=== PATIENT | male | born 1945 | race Asian ===

== ENCOUNTER 2023-05-22 23:33 | Outpatient (CLI) | payer MEDICARE, OTHER | END 2023-05-22 23:59 | disposition other institution (70) | LOC: EMS 23:33 | DX: R10.9 Unspecified abdominal pain (principal); R11.2 Nausea with vomiting, unspecified | CPT/HCPCS: A0425; A0429 ==

== ENCOUNTER 2023-05-22 23:52 | Emergency (ER) | payer MEDICARE, OTHER ==
--- NOTE | 2023-05-23 00:09 | ED Physician Documentation ---
History of Present Illness - Stated complaint Stated Complaint: LEFT FLANK PAIN - Chief complaint Chief Complaint: Back Pain - Additonal information Additional information: 78-year-old male presenting to the emergency department with left-sided flank pain that began acutely this evening. Reports left-sided flank pain worse with physical activity. Denies fever, chills, nausea, vomiting, dysuria, blood in urine. Denies history of kidney stones. Review of Systems Constitutional: denies: Fever Eyes: denies: Loss of vision Ears: denies: Loss of hearing Nose: denies: Rhinorrhea / runny nose Throat: denies: Dental pain / toothache Cardiac: denies: Chest pain / pressure Respiratory: denies: Dyspnea GI: reports: Other (Flank pain). denies: Abdominal Pain : denies: Dysuria, Hematuria PD PAST MEDICAL HISTORY - Past Medical History Past Medical History: Yes Cardiovascular: High cholesterol, Angina Respiratory: None Neuro: None Endocrine/Autoimmune: HyPOthyroidism GI: None : None HEENT: None Psych: None Musculoskeletal: None Derm: None - Past Surgical History Past Surgical History: Yes Cardiovascular: Coronary stent, Angioplasty - Present Medications Home Medications: Ambulatory Orders Medication Instructions Recorded Confirmed Levothyroxine Sodium 02/06/16 HYDROcod/ACETAM 5/325 [[place] 5/325] 1 tab PO Q6HR #10 tab 05/23/23 Ibuprofen [Motrin] 800 mg PO Q8H PRN #30 tablet 05/23/23 - Allergies Allergies/Adverse Reactions: Allergies Allergy/AdvReac Type Severity Reaction Status Date / Time No Known Drug Allergies Allergy Verified 02/06/16 16:58 - Social History Does the pt smoke?: No Smoking Status: Former smoker Does the pt drink ETOH?: Yes Does the pt have substance abuse?: No - Immunizations Immunizations are current?: Yes - POLST Patient has POLST: No PD ED PE NORMAL - Vitals Vital signs reviewed: Yes - General General: Alert and oriented X 3, No acute distress, Well developed/nourished - HEENT HEENT: Atraumatic, PERRL - Neck Neck: Supple, no meningeal sign - Cardiac Cardiac: RRR - Respiratory Respiratory: No respiratory distress, Clear bilaterally - Abdomen Abdomen: Non tender - Male Male : Pt declined - Back Back: No CVA TTP, No spinal TTP - Derm Derm: Normal color - Extremities Extremities: No deformity, No edema - Neuro Neuro: Alert and oriented X 3, sports medicine physician 2-12 intact, No motor deficit, Normal speech Results - Vitals Vitals: Vital Signs - 24 hr 05/22/23 05/23/23 23:55 01:56 Temperature 36.7 C Heart Rate 87 64 Respiratory 17 16 Rate Blood Pressure 157/87 H 134/70 H O2 Saturation 98 99 Oxygen O2 Source Room air - Labs Labs: Laboratory Tests 05/23/23 05/23/23 05/23/23 00:10 00:10 00:10 WBC 8.0 RBC 4.54 L Hgb 14.1 Hct 42.8 MCV 94.3 H MCH 31.1 H MCHC 32.9 RDW 13.3 Plt Count 182 MPV 10.7 Neut # (Auto) 7.0 H Lymph # (Auto) 0.7 L Story # (Auto) 0.3 Eos # (Auto) 0.0 Baso # (Auto) 0.0 Absolute Nucleated RBC 0.00 Nucleated RBC % 0.0 Sodium 137 Potassium 4.1 Chloride 103 Carbon Dioxide 27 Anion Gap 7.0 BUN 13 Creatinine 1.1 Estimated GFR (MDRD) 65 L Glucose 141 H Lactic Acid Calcium 9.8 Total Bilirubin 0.8 AST 25 ALT 16 Alkaline Phosphatase 99 Total Protein 7.0 Albumin 4.4 Globulin 2.6 Albumin/Globulin Ratio 1.7 Lipase 16 Urine Color BROWN Urine Clarity CLOUDY Urine pH 6.5 Ur Specific Hammond 1.025 Urine Protein 30 H Urine Glucose (UA) NEGATIVE Urine Ketones 40 H Urine Occult Blood LARGE H Urine Nitrite NEGATIVE Urine Bilirubin NEGATIVE Urine Urobilinogen 0.2 (NORMAL) Ur Leukocyte Esterase NEGATIVE Urine RBC TNTC H Urine WBC 0-3 Ur Squamous Epith Cells NONE SEEN Urine Bacteria Rare Urine Mucus Few Strands Ur Microscopic Review INDICATED Urine Culture Comments NOT INDICATED 05/23/23 00:20 WBC RBC Hgb Hct MCV MCH MCHC RDW Plt Count MPV Neut # (Auto) Lymph # (Auto) Story # (Auto) Eos # (Auto) Baso # (Auto) Absolute Nucleated RBC Nucleated RBC % Sodium Potassium Chloride Carbon Dioxide Anion Gap BUN Creatinine Estimated GFR (MDRD) Glucose Lactic Acid 1.0 Calcium Total Bilirubin AST ALT Alkaline Phosphatase Total Protein Albumin Globulin Albumin/Globulin Ratio Lipase Urine Color Urine Clarity Urine pH Ur Specific Hammond Urine Protein Urine Glucose (UA) Urine Ketones Urine Occult Blood Urine Nitrite Urine Bilirubin Urine Urobilinogen Ur Leukocyte Esterase Urine RBC Urine WBC Ur Squamous Epith Cells Urine Bacteria Urine Mucus Ur Microscopic Review Urine Culture Comments PD Medical Decision Making - ED course Complexity details: reviewed results, re-evaluated patient, considered differential, d/w patient ED course: Patient 78-year-old male presenting to the emergency department with left-sided flank pain. Afebrile, hemodynamically stable. Labs within normal limits are generally nonactionable. CT of the abdomen pelvis demonstrates a 4 mm left-sided kidney stone with hydroureter without hydronephrosis. Of note patient does not demonstrate any renal dysfunction on lab work and no indications of infection in his urine. On reevaluation was found to be resting comfortably. Will provide medication for pain control, urine strainer, encourage follow-up with primary care. We will also provide contact information for local area urology for use as needed. Clear return precautions given. Departure - Departure Disposition: Home, Self Care Clinical Impression: Kidney stone on left side Instructions: Kidney Stones, ED Stone Renal W Colic Follow-Up: Amado Bell MD [Provider Admit Priv/Credential] - Prescriptions: HYDROcod/ACETAM 5/325 [[place] 5/325] 1 tab PO Q6HR #10 tab Ibuprofen [Motrin] 800 mg PO Q8H PRN #30 tablet PRN Reason: PAIN &/OR FEVER Comments: Thank you [facility] allowing [facility] Today in the emergency department you were diagnosed with a left-sided kidney stone. A 4 mm kidney stone was identified on the CT scan performed in the emergency department today the remainder of your labs are all very reassuring. Stones of this size have a greater than 95% likelihood of passing spontaneously in the next few days. I like you to use a urine strainer at home for the next few days. I recommend drinking plenty of fluid. I have written some medications for pain control. Please take these as directed. Please follow-up with your primary care doctor. I have also included the phone number for a local urologist for use as needed for persistent symptoms that do not resolve in the next 1 to 2 days. If it anytime you develop any new or worsening symptoms, particularly if you develop worsening pain, intractable nausea, vomiting, inability to tolerate food, fluids or medications or if you develop any angelica blood in your urine or feel the need to urinate and cannot please return to the emergency department immediately for reevaluation.
[2023-05-23] MEDS ORDERED: SODIUM CHLORIDE 0.9% 1,000 ML IV STA (00:20)
[2023-05-23 00:26] LABS: BASOPHILS % (AUTO) 0.4 %; EOSINOPHILS % (AUTO) 0.1 %; HCT - HEMATOCRIT 42.8 % (42.0-52.0); HGB - HEMOGLOBIN 14.1 g/dL (14.0-18.0); LYMPHOCYTES # (AUTO) 0.7 10^3/uL (1.5-3.5); LYMPHOCYTES % (AUTO) 8.1 %; MEAN CORPUSCULAR HEMOGLOBIN 31.1 pg (27.0-31.0); MEAN CORPUSCULAR HGB CONC 32.9 g/dL (32.0-36.0); MEAN CORPUSCULAR VOLUME 94.3 fL (80.0-94.0); MEAN PLATELET VOLUME 10.7 fL (7.4-11.4); MONOCYTES # (AUTO) 0.3 10^3/uL (0.0-1.0); MONOCYTES % (AUTO) 3.7 %; NEUTROPHILS % (AUTO) 87.5 %; PLT - PLATELET COUNT 182 10^3/uL (130-450); RED BLOOD COUNT 4.54 10^6/uL (4.70-6.10); RED CELL DISTRIBUTION WIDTH 13.3 % (12.0-15.0)
[2023-05-23 00:37] LABS: BILIRUBIN,URINE NEGATIVE (NEGATIVE); GLUCOSE, URINE (UA) NEGATIVE (NEGATIVE); KETONES,URINE (UA) 40 mg/dL (NEGATIVE); LEUKOCYTE ESTERASE, URINE NEGATIVE (NEGATIVE); NITRITE,URINE NEGATIVE (NEGATIVE); OCCULT BLOOD,URINE LARGE (NEGATIVE); PH,URINE 6.5 PH (5.0-7.5); PROTEIN,URINE 30 mg/dL (NEGATIVE); UROBILINOGEN,URINE 0.2 (NORMAL) E.U./dL (NORMAL)
[2023-05-23 00:38] LABS: CLARITY,URINE CLOUDY (CLEAR)
[2023-05-23 00:39] LABS: BACTERIA,URINE Rare /HPF (None Seen); MUCUS,URINE Few Strands; RBC,URINE TNTC /HPF (0-5); SQUAMOUS EPITHELIAL CELL,UR NONE SEEN (<= Few); WBC,URINE 0-3 /HPF (0-3)
[2023-05-23 00:40] LABS: ALBUMIN 4.4 g/dL (3.2-5.5); ALBUMIN/GLOBULIN RATIO 1.7 (1.0-2.2); BILIRUBIN,TOTAL 0.8 mg/dL (0.2-1.0); CALCIUM 9.8 mg/dL (8.5-10.3); CREATININE 1.1 mg/dL (0.6-1.3); POTASSIUM 4.1 mmol/L (3.5-4.5)
--- OUTSIDE RECORDS SUMMARY | 2023-05-23 00:43 | EXTERNAL MEDICAL SUMMARY RPT | Continuity of Care Document ---
Author Name Unknown Address [address] [place] [address] Phone Organization [facility] Address [address] [phone] Phone Problems date description facility [facility]23[facility] date [facility] value unit notes
[2023-05-23] MEDS ORDERED: KETOROLAC 30 MG/ML VIAL IVP STA (00:48)
--- NOTE | 2023-05-23 02:06 | CT Report ---
PROCEDURE: ABDOMEN/PELVIS W INDICATIONS: lft flank pain CONTRAST: Omni 300 100ml TECHNIQUE: After the administration of intravenous contrast, 5 mm thick sections acquired from the diaphragms to the symphysis. 5 mm thick coronal and sagittal reformats were acquired. For radiation dose reducti on, the following was used: automated exposure control, adjustment of mA and/or kV according to sanjuanita ent size. COMPARISON: FINDINGS: Image quality: Excellent. Lung bases and heart: Unremarkable. Liver: No solid mass. Gallbladder and biliary tree: Unremarkable. Spleen: No splenomegaly. Pancreas: No pancreatic ductal dilation. Adrenals: No adrenal nodule. Kidneys and ureters: No nephrolithiasis. No right hydronephrosis or hydroureter. There is mild left p elviectasis and mild left hydroureter. A 4 mm calculus is present at the left vesicular junction. Bowel and peritoneum: No bowel distension. No pathologic free fluid. The appendix is thin-walled. Lymph nodes: No central or retroperitoneal adenopathy. Vessels: No infrarenal aortic aneurysm. PELVIS Reproductive organs: Unremarkable. Bladder: No abnormal wall thickening, accounting for underdistension. Pelvic lymph nodes: No pelvic adenopathy by size criteria. Bones: No aggressive osseous abnormality. Other: No significant ventral or inguinal hernia. IMPRESSION: 1. 4 mm calculus in the left ureterovesicular junction with mild hydroureter and pelviectasis. No hyd ronephrosis. Mild perinephric fat stranding. 2. No other acute intra-abdominal findings. Normal appendix. Reviewed by: Edelmira Hernandez MD on 05/23/2023 2:04 AM PDT Approved by: Edelmira Hernandez MD on 05/23/2023 2:04 AM PDT Station ID: [id number]
[2023-05-23 03:09] VITALS: BP 112/85; O2SAT 100
[2023-05-23] MEDS ORDERED: iohexoL-300 100 ML VIAL IVP ONE (03:27)
== END 2023-05-23 03:08 | disposition home or self-care (01) ==
LOC: EDUNIT# → ED 23:52
DX: N13.2 Hydronephrosis with renal and ureteral calculous obstruction (principal); Z87.891 Personal history of nicotine dependence
CPT/HCPCS: 36415; 74177; 80053; 81001; 83605; 83690; 85025; 96374; 99283; 99284; Q9967; 81003; 87086